=== PATIENT | female | born 1980 | race Caucasian/White ===

== ENCOUNTER 2024-01-01 17:35 | Emergency (ER) | payer BC, SELFPAY ==
[2024-01-01 17:46] VITALS: BP 161/94; PULSE 78; TEMP 37.2; O2SAT 99; BMI 30.9
[2024-01-01] MEDS: FLUORESCEIN SODIUM 1 MG STRIP OP (18:47)
[2024-01-01] MEDS: TETRACAINE HCL 0.5% OP SOL 80 DROP/4 ML BOTTLE OP (18:48)
--- NOTE | 2024-01-01 19:07 | ED_ITS ---
HPI - Eye Problem General Chief complaint: Eye Problems Stated complaint: Eye Pain/Redness Time Seen by Provider: 01/01/24 18:35 Source: patient Mode of arrival: walk-in Limitations: no limitations History of Present Illness HPI Narrative: Patient is a 43yr old female [place] to the ER with concerns of right eye pain and redness. Patient was recently in [place], [place] and upon driving home noted irritation to her right eye. Patient wears contacts. States she was seen by her PCP on Thursday and later that day started a polymyxin prescription for suspected pinkeye. Patient reports having trouble seeing without using her glasses and reinserted her contacts with worsening symptoms. She denies any loss of vision. She was also placed on a prednisone prescription for her back which she has taken in the past without any eye symptoms. Patient denies headache. She can take only Tylenol for pain and recently received a Vivitrol shot. Patient denies any loss of vision. She reports her eye irritation to be an 8 out of 10 and does not believe she got a foreign body but that symptoms started out very similar to pinkeye which she has had in the past. Patient appears in no distress, with symptoms localized to the right eye. Positive light sensitivity. MD chief complaint: Reports eye pain and eye redness; Denies eye injury or vision change Onset (ago): day(s) Onset description: Reports gradual Duration: Reports constant Location: Reports right eye Eye Symptoms: Reports redness and pain Place: Reports other (traveling) Severity: mild Treatments Prior to Arrival: Reports removed contact lens (but then reapplied today. ) Related Data Home Medications ?Medication ?Instructions ?Recorded ?Confirmed naltrexone microspheres 380 mg 380 mg IM .Monthly 01/01/24 01/01/24 intramuscular suspension,extended release (Vivitrol) pantoprazole 20 mg tablet,delayed 20 mg PO DAILY 01/01/24 01/01/24 release prednisone 10 mg tablet 10 mg PO DAILY 01/01/24 01/01/24 tizanidine 4 mg tablet 4 mg PO DAILY PRN muscle spasticity 01/01/24 01/01/24 Allergies Allergy/AdvReac Type Severity Reaction Status Date / Time No Known Drug Allergies Allergy Verified 01/01/24 17:52 Review of Systems ROS Constitutional Denies: fever or chills Eyes Reports: light sensitivity, eye discomfort and eye discharge; Denies: change in vision, dry eyes, increased production of tears, floaters or seeing flashes Ears, nose, mouth, and throat Denies: throat pain, neck pain or dry mouth Cardiovascular Denies: shortness of breath when lying down Respiratory Denies: shortness of breath or cough Gastrointestinal Denies: abdominal pain or nausea Musculoskeletal Reports: back pain; Denies: neck pain Integumentary/Breast Denies: rash or itching Neurological Denies: headache Psychiatric Denies: anxiety Allergic/Immunologic Denies: hives Exam Narrative Exam Narrative: Nurses's note reviewed and patient is not hypoxic. General: The patient appears well and in no apparent distress. Patient is resting comfortably on cart. Skin: Warm, dry, no pallor noted. Head: Normocephalic, atraumatic Neck: Supple, trachea mid-line, no tenderness, no lymphadenopathy Eye: Normal extraocular motion, pupils were equal round and reactive to light, the patient had no pain with extraocular motion. The patient had Tetracaine applied to the right eye, with relief of pain. fluorescein dye was instilled following. The patient had exam with abbott lamp initially, no gross uptake. then slit lamp was used, with irriation cloudy dot 3 o-clock position on the cornea, but no sasha ulcer. . The patient had no involvement over the pupil. There was evidence of conjunctival injection. The patient's eyelid was everted and swept with no evidence of foreign body. The patient had no swelling of the upper/lower eyelid. No evidence of hyphema, dendritic lesion or Narrow angle. No evidence of preseptal cellulitis or orbital cellulitis. Ears, Nose, Mouth, and Throat: oral mucosa is moist Respiratory: Patient is in no distress Neurological: A&O x4, normal speech Psychiatric: Cooperative Constitutional Vital Signs, click to edit/add: Last Vital Signs Temp 99.0 F 01/01/24 17:46 Pulse 78 01/01/24 17:46 Resp 18 01/01/24 17:46 BP 151/98 H 01/01/24 19:19 Pulse Ox 99 01/01/24 17:46 O2 Del Method Room Air 01/01/24 17:46 Course Vital Signs Vital signs: Vital Signs Temperature 99.0 F 01/01/24 17:46 Pulse Rate 78 01/01/24 17:46 Respiratory Rate 18 01/01/24 17:46 Blood Pressure 161/94 H 01/01/24 17:46 Pulse Oximetry 99 01/01/24 17:46 Oxygen Delivery Method Room Air 01/01/24 17:46 Temperature 99.0 F 01/01/24 17:46 Pulse Rate 78 01/01/24 17:46 Respiratory Rate 18 01/01/24 17:46 Blood Pressure 151/98 H 01/01/24 19:19 Pulse Oximetry 99 01/01/24 17:46 Oxygen Delivery Method Room Air 01/01/24 17:46 MDM - Eye Problem MDM Narrative Medical decision making narrative: Visual acuity 20/40, patient notes irritation upon driving home after spending [place] days at the beach. Patient wears contacts, initially removed with irritation but then reapplied after starting the drops. Recommend that she discard her Contacts.He is well-established with an eye doctor and has been trialing different Contact lenses. We cannot do anything stronger for pain than Tylenol as she is currently on a prednisone prescription but will be started on Voltaren drops topically. We discussed not reapplying contacts until her symptoms resolve or she has rechecked by her Eye doctor. She is to return to the ER if symptoms worsen. When I shine a light in her left eye with her right eye covered she does not have any increased pain and we discussed the potential for auto immune conditions which appear less likely given clinical history. Patient will be switched to fluoroquinolone topical antibiotic pending follow-up with her eye doctor. Patient thankful has no further concerns or questions. Follow-up Differential Diagnosis Differential diagnosis: Likely corneal abrasion, conjunctivitis and corneal ulcer; Unlikely hyphema, periorbital cellulitis, subconjunctival hemorrhage or glaucoma Discharge Plan Discharge Stand Alone Forms: Portal Instructions Chief Complaint: Eye Problems Clinical Impression: Conjunctivitis Patient Disposition: Home, Self-Care Time of Disposition Decision: 19:07 Condition: Good Prescriptions / Home Meds: No Action Vivitrol 380 mg suspension,extended rel recon 380 mg IM .Monthly Rx Instructions: Last dose 01/01/2024 prednisone 10 mg tablet 10 mg PO DAILY tizanidine 4 mg tablet 4 mg PO DAILY PRN (Reason: muscle spasticity) pantoprazole 20 mg tablet,delayed release (DR/EC) 20 mg PO DAILY Print Language: Citizen [place] Instructions: Conjunctivitis (ED) Additional Instructions: Contact your eye doctor for appt on Thursday: Stop Polymxin, start Ofloxacin ophthalmic 2 drops every 6 hours right eye for 5 days Diclofenac ( Voltaren opthalmic ) 1 drop right eye every 6 hours for 5 days - Discard your contacts that were worn - Wear glasses only - Tylenol for pain Referrals: JONATHAN ANNA [Primary Care Provider] - 1 week Discharge Date/Time: 01/01/24 19:20
[2024-01-01] MEDS: DICLOFENAC SODIUM 0.1% OP (19:17)
[2024-01-01] MEDS: OFLOXACIN 0.3% OP SOL 100 DROP/5 ML BOTTLE OP (19:17)
[2024-01-01 19:19] VITALS: BP 151/98
== END 2024-01-01 19:20 | disposition home or self-care (01) ==
PROVIDERS: Emergency Provider Emergency Medicine
DX: H10.9 Unspecified conjunctivitis (principal); Z79.899 Other long term (current) drug therapy
CPT/HCPCS: 99284